=== PATIENT | female | born 1960 | race Caucasian/White ===

== ENCOUNTER 2022-11-26 13:18 | Emergency (ER) | payer BC ==
[~2022-11-26] VITALS: Ht 162.6 cm; Wt 84.1 kg
[2022-11-26 13:30] VITALS: TEMP 98.5
[2022-11-26 14:05] VITALS: BP 130/72; PULSE 80
== END 2022-11-26 14:10 | disposition home or self-care (01) ==
LOC: COL.ER 13:18
DX: B34.9 Viral infection, unspecified (principal); R51.9 Headache, unspecified; R09.81 Nasal congestion; H57.89 Other specified disorders of eye and adnexa